=== PATIENT | male | born 1995 | race Caucasian/White ===

== ENCOUNTER 2022-07-08 22:58 | Emergency (ER) | payer MEDICAID, SELFPAY ==
[2022-07-08] VITALS (11 sets, daily range): BP systolic 113–153; BP diastolic 68–92; PULSE 87–114; RESP 17–24; TEMP 36.6; O2SAT 100
--- NOTE | 2022-07-08 23:00 | RT.EKG_ITS ---
APPROVED REPORT Exam: Resting ECG Reason for Exam: palpitations Patient Location: E HR:112 bpm ECG Measurements Heart Rate 112 AXIS WV 155 P 73 QRSd 118 QRS 78 QT 331 T 44 QTc 452 Conclusion Sinus tachycardia...rate> 99 Right bundle branch block...QRSd>120, terminal axis(90,270) I have reviewed and interpreted ECG and agree with software generated interpretation.
[2022-07-08] MEDS: Normal Saline 1,000 ML 1000 ML IV (23:24)
[2022-07-08 23:35] LABS: Abs Immature Grans 0.01 10^3/uL (0.0-0.06); Absolute Basophil Count 0.06 10^3/uL (0.0-0.2); Absolute Eosinophil Count 0.15 10^3/uL (0.0-0.7); Absolute Lymphocyte Count 2.41 10^3/uL (1.2-3.4); Absolute Monocyte Count 0.41 10^3/uL (0.1-0.8); Eosinophils % 2.6; HCT 43.5 % (40.0-50.0); HGB 15.3 g/dL (13.5-17.5); Immature Grans % 0.2; MCH 31.5 pg (27.0-33.0); MCHC 35.2 % (32.0-36.0); MCV 90 fL (80-95); Monocytes % 7.1; Neutrophils % 47.1; Platelet Count 251 10^3/uL (130-400); RBC 4.86 10^6/uL (4.36-5.78); RDW 11.9 % (11.8-14.1); RDW-SD 38.7 fL; WBC 5.74 10^3/uL (4.4-10.8)
[2022-07-08 23:52] LABS: PHOSPHORUS 2.6 mg/dL (2.6-4.7)
[2022-07-09] VITALS: BP 115/66; PULSE 91; PULSE 95; RESP 17; O2SAT 100
[2022-07-09] LABS: ALT 38 U/L (16-63); AST 18 U/L (15-37); Albumin 4.5 g/dL (3.4-5.0); Alkaline Phosphatase 72 U/L (46-116); Anion Gap 9.2 mmol/L (3-11); BUN 17 mg/dL (7-18); Bilirubin, Total 0.5 mg/dL (0.2-1.0); CO2 28.8 mmol/L (21.0-32.0); Calcium 9.2 mg/dL (8.5-10.1); Chloride 103 mmol/L (98-107); Estimated GFR 105.14 (mL/min/1.73m2); Glucose 127 mg/dL (74-106); Magnesium 1.8 mg/dL (1.8-2.4); NT-proBNP 20 pg/mL (<300); Potassium 3.6 mmol/L (3.5-5.1); Sodium 141 mmol/L (136-145); TSH (W/Ref FT4) 1.65 uIU/mL (0.36-3.74); Total Protein 7.9 g/dL (6.4-8.2); Troponin I < 50 ng/L (<or=60)
[2022-07-09 00:01] VITALS: PULSE 97; RESP 15; O2SAT 100
--- NOTE | 2022-07-09 00:03 | ED.GENADUL_ITS ---
Discharge Plan Disposition Patient Disposition: Home Condition: Good Discharge Details Clinical Impression: Palpitations Primary Care Provider: Néstor Baca ED Provider: Cyrus Chilel Home Meds and New Rx's Prescriptions: No Action multivitamin Tablet 1 tab PO DAILY albuterol sulfate [ProAir HFA] 90 mcg/actuation HFA aerosol inhaler 2 puff inhalation .q4-6h PRN (Reason: shortness of breath or wheezing) Qty: 8.5 0RF Discharge Instructions Instructions: Heart Palpitations (ED) Additional Instructions: At this time your work-up has returned very reassuring. Your electrolytes cardiac function and lab markers are all normal. You do appear to be having intermittent premature atrial contractions with potential premature ventricular contractions. Please contact the respiratory therapy department on Monday to set up establishment of Holter monitor. Please avoid any stimulants, get plenty of sleep and rest, and avoid any significant stressful activity. If you notice any worsening of your symptoms, or any new symptoms such as vomiting, diarrhea, fever, chills, shortness of breath, chest pain, numbness, weakness, or fainting , please return immediately to the emergency department for reevaluation. Please follow up with your primary care provider as soon as possible for reassessment and reevaluation. As always, it was a pleasure participating in your medical care today. Referrals: Agueda Ag MD [ [facility] STAFF PHYSICIAN] - Discharge Orders Other Ambulatory Orders: Holter Monitor (Routine) Timeframe: 1 Week Facility: [facility] - Location: Respiratory Therapy Ordered By: Cyrus Chilel Medical Decision Making This is a 26-year-old male with a past medical history of a bicuspid aortic valve, ischemia of the redness of his right eye, asthma, who presents today for palpitations. Patient states that he has been intermittently feeling random short-lived palpitations for the last few months to years, however tonight he felt quite a few of them which was atypical. They occurred about 30 minutes prior to arrival. They seem to be present every few minutes or so. It is felt as just a single atypical beat. He denies any significant chest pain but does admit to an odd chest sensation. He denies numbness tingling or weakness. He denies syncope or lightheadedness. He denies any family history of sudden cardiac , significant dysrhythmias or other abnormalities. He did drink Gatorade tonight, and he does take a regular magnesium supplement secondary to the ischemia of his retina, however he denies any cocaine use, caffeine use, or other stimulants. Patient did take an Ativan and some vaped marijuana prior to arrival after the palpitations began and this did not seem to change his symptoms. No other complaints at this time. No other modifying factors. Physical exam demonstrates well-appearing male, vital signs stable, no abnormality on physical exam. EKG is benign in appearance aside for evidence of a right bundle branch block which she states is not new. On the monitor the patient does appear to have intermittent premature atrial contractions, but no evidence of A-fib or flutter. There does appear to be atrial enlargement noted on EKG, differential includes PACs secondary to the patient's chronic heart conditions gradually worsened and then precipitated by enlargement of his atria,, but also include electrolyte abnormality, PE, or stimulant cause. We will evaluate for concerning etiologies, monitor closely and reassess. 1 AM Laboratory work-up has returned, D-dimer normal, proBNP normal suggesting no cardiac strain. Thyroid function normal, troponin normal, electrolytes normal, CBC normal. Patient remained stable. Symptoms have improved. We have noticed that his PACs appear to be a little bit more present when he is speaking, but not when he is resting. Patient otherwise looks clinically well, vital signs stable. Discussed prolonged observation versus discharge and patient feels very comfortable with discharge at home at this time. No evidence of significant cardiac dysrhythmia, however with the patient's PACs that he has had I do feel that outpatient Holter monitor is reasonable to evaluate for any other significant different dysrhythmia. We will schedule for an outpatient Holter and placed the order with respiratory therapy. Recommended continued hydration at home, close monitoring of his food diary, and return if he has any worsening symptoms. Symptoms at this time appear inconsistent with significant life- threatening dysrhythmia. Discussed red flags for which to return. I have extensively reviewed the treatment plan and discharge instructions with the patient. I have addressed all patient concerns at this time. The patient was made aware of what symptoms to monitor for that would warrant a return to the emergency department. Discussed the plan with the patient, they demonstrate verbal understanding and agreement with our assessment and plan at this time. The documentation in this chart was dictated using [employer] dictation software. Please excuse any dictation errors. HPI General Date/Time Provider Initiated Documentation: 07/08/22 23:03 . HPI Narrative: This is a 26-year-old male with a past medical history of a bicuspid aortic valve, ischemia of the redness of his right eye, asthma, who presents today for palpitations. Patient states that he has been intermittently feeling random short-lived palpitations for the last few months to years, however tonight he felt quite a few of them which was atypical. They occurred about 30 minutes prior to arrival. They seem to be present every few minutes or so. It is felt as just a single atypical beat. He denies any significant chest pain but does admit to an odd chest sensation. He denies numbness tingling or weakness. He denies syncope or lightheadedness. He denies any family history of sudden cardiac , significant dysrhythmias or other abnormalities. He did drink Gatorade tonight, and he does take a regular magnesium supplement secondary to the ischemia of his retina, however he denies any cocaine use, caffeine use, or other stimulants. Patient did take an Ativan and some vaped marijuana prior to arrival after the palpitations began and this did not seem to change his symptoms. No other complaints at this time. No other modifying factors. Related Data Home Medications Medication Instructions Recorded Confirmed multivitamin 1 tab PO DAILY 06/16/21 07/08/22 albuterol sulfate 90 mcg/actuation 2 puff inhalation .q4-6h PRN 07/23/21 07/08/22 aerosol inhaler (ProAir HFA) shortness of breath or wheezing #8.5 grams Previous Rx's Medication Instructions Recorded albuterol sulfate 90 mcg/actuation 2 puff inhalation .q4-6h PRN 07/23/21 aerosol inhaler (ProAir HFA) shortness of breath or wheezing #8.5 grams Allergies Allergy/AdvReac Type Severity Reaction Status Date / Time seasonal allergies Allergy Uncoded 07/08/22 23:20 General Stated Complaint: Palpitatns JIMMY: 2 Review of Systems All systems reviewed & are unremarkable except as noted in HPI and below PFSH All Active Problems (Updated 07/09/22 @ 00:29 by Cyrus Chilel DO) Palpitations (Acute) Tachycardia (Acute) Ischemia of retina of right eye (Acute) Bicuspid aortic valve (Chronic) Anxiety (Chronic) Asthma (Chronic) Medical History BRBPR (bright red blood per rectum) Depression Urinary frequency Surgical History Meatal stenosis surgery 11/2000 Family History Paternal Grandmother Colon cancer Diabetes Anxiety Father Depression Heart disease Hypertension Anxiety Mother Hypertension Anxiety Social History Smoking/Tobacco Use Status: Never Second Hand Exposure: No Smoking risk assessment performed?: Yes Alcohol Intake: never Drug use: Never Substance use type: does not use and marijuana Adopted: No Caregiver/Support person: No Foster care: No Household members: significant other Housing: house Number of Children: 0 Communication Needs: Corrective Lenses Education Level: high school Do you need help understanding health information?: Never current occupation: [employer] Pets and animals: No Sexually active: Yes Do you think of yourself as: straight/heterosexual Current gender identity: male What is your relationship status?: living with partner How often do you talk on the phone with friends or family?: once per week Do you belong to any clubs or organized social groups?: no Panel score (0-1 are the most socially isolated patients): 1 What type of physical activity do you participate in: walking and weight lifting Duration: < 15 minutes/day Roselia/Catholic: Denominational Special roselia needs: No Seatbelt use: always Helmet use: Yes Helmet use: always Drive intox or ride w/intox seasonal driver: No Do you feel safe in your relationship?: Yes Victim of physical abuse: No Exam Narrative Exam Narrative: 1.Const: Well-nourished, Well-developed, appearing stated age 2.Eyes: PERRL, no conjunctival injection, and symmetrical lids. 3.ENT: Atraumatic external nose and ears. Moist MM. Neck: Symmetric, trachea midline, No thyromegaly. 4.CVS: +S1/S2, No murmurs or gallops. Peripheral pulses 2+ and equal in all extremities. Brisk capillary refill in all extremities. 5.RESP: Unlabored respiratory effort. Clear to auscultation bilaterally. No wheezes rales or rhonchi 6.GI: Soft, Nontender/Nondistended, No hepatosplenomegaly. No guarding or rebound. 7.MSK: Normocephalic/Atraumatic, Extremities w/o deformity or ttp No cyanosis or clubbing, Normal movement of all extremities 8.Skin: Warm, Dry. No rashes or lesions. 9.Neuro: rooter operator II-XII grossly intact. Sensation grossly intact, no focal neurologic deficits. 10.Psych: (AAO) x3. Appropriate mood and affect Course Vital Signs Vital signs: Vital Signs Temperature 36.6 C 07/08/22 23:01 Pulse 111 H 07/08/22 23:01 Respiratory Rate 20 07/08/22 23:01 Blood Pressure 153/84 H 07/08/22 23:01 Pulse Oximetry 100 07/08/22 23:01 Temperature 36.6 C 07/08/22 23:01 Pulse 104 H 07/08/22 23:03 Pulse 103 H 07/08/22 23:20 Respiratory Rate 23 07/08/22 23:20 Respiratory Effort Normal 07/08/22 23:01 Blood Pressure 153/84 H 07/08/22 23:03 Blood Pressure Mean 101 07/08/22 23:03 Blood Pressure Position Sitting 07/08/22 23:01 Pulse Oximetry 100 07/08/22 23:10 Pain Level 0 07/08/22 23:01 Lab/Test Results Lab/Test Results: Laboratory Tests Range/Units 07/08/22 23:10 WBC (4.4-10.8) 10^3/uL 5.74 RBC (4.36-5.78) 10^6/uL 4.86 Hgb (13.5-17.5) g/dL 15.3 Hct (40.0-50.0) % 43.5 MCV (80-95) fL 90 MCH (27.0-33.0) pg 31.5 MCHC (32.0-36.0) % 35.2 RDW (11.8-14.1) % 11.9 Plt Count (130-400) 10^3/uL 251 MPV (8.0-11.0) fL 10.0 Immature Gran % 0.2 Neutrophils % 47.1 Lymphocytes % 42.0 Monocytes % 7.1 Eosinophils % 2.6 Basophils % 1.0 Nucleated RBC % (0.0-0.3) % 0.0 Absolute Neutrophils (1.2-6.7) 10^3/uL 2.70 Absolute Lymphocytes (1.2-3.4) 10^3/uL 2.41 Absolute Monocytes (0.1-0.8) 10^3/uL 0.41 Absolute Eosinophils (0.0-0.7) 10^3/uL 0.15 Absolute Basophils (0.0-0.2) 10^3/uL 0.06
[2022-07-09 00:09] LABS: D-Dimer < 75 ng/mlFEU (<500)
[2022-07-09 00:10] VITALS: PULSE 100; RESP 19; O2SAT 100
[2022-07-09 00:15] VITALS: BP 118/76; PULSE 96; PULSE 97; RESP 25; O2SAT 100
[2022-07-09 00:20] VITALS: PULSE 103; RESP 14; O2SAT 100
--- NOTE | 2022-07-09 00:29 | NUR.NOTE ---
Requisition for Holter Monitor faxed to Respiratory Therapy. Nursing Note:
[2022-07-09 00:39] VITALS: BP 123/68; PULSE 103; RESP 14; O2SAT 100
== END 2022-07-09 00:42 | disposition home or self-care (01) ==
LOC: ER 07-09 00:47
PROVIDERS: Emergency Provider Student in an Organized Health Care Education/Training Program; PCP Family Medicine
DX: R00.2 Palpitations (principal); J45.909 Unspecified asthma, uncomplicated; I45.10 Unspecified right bundle-branch block
CPT/HCPCS: 36415; 80053; 93005; 96360; 99284; 83735; 83880; 84100; 84443; 84484; 85025; 85379; 93010

== ENCOUNTER 2022-07-15 13:36 | Outpatient (RCR) | payer MEDICAID, SELFPAY ==
--- NOTE | 2022-07-15 13:30 | HOLTER_ITS ---
APPROVED REPORT Conclusion This is a 48-hour Holter monitor ordered for palpitations Rhythm throughout was sinus with an average heart rate of 72. Minimum was 53, maximum 146 3 isolated PVCs were seen 2 isolated atrial premature beats occurred There was no atrial fibrillation no SVT no high-grade AV block no pauses greater than 3 seconds Numerous patient symptoms were reported none of which had any correlation with dysrhythmia
== END 2022-07-29 23:59 | disposition home or self-care (01) ==
LOC: CARDOPNVT 13:36
PROVIDERS: PCP Family Medicine; Visit Provider Student in an Organized Health Care Education/Training Program
DX: R00.2 Palpitations (principal); I49.1 Atrial premature depolarization; I49.3 Ventricular premature depolarization
CPT/HCPCS: 93225; 93226

== ENCOUNTER 2022-10-04 01:50 | Outpatient (CLI) | payer MEDICAID, SELFPAY ==
--- NOTE | 2022-10-04 | DI.RAD_ITS ---
Exam(s) XR HAND LT COMPLETE EXAM: XR HAND LT COMPLETE CLINICAL HISTORY: LT FINGER PAIN, M79.645. TECHNIQUE: 2D digital imaging was performed of the left hand. Three views were obtained. AP, later al and oblique views were obtained. COMPARISON: No exams were available for comparison FINDINGS: BONES: No acute fracture is present. No bony destructive lesion is seen. JOINTS: No dislocation present. The joint spaces are well maintained. SOFT TISSUE: Normal. IMPRESSION: Unremarkable radiographs of the left hand. DATA REPOSITORY: RADIATION DOSE DELIVERED:
== END 2022-10-04 02:10 ==
LOC: DI 01:50
PROVIDERS: PCP Family Medicine; Visit Provider Family Medicine
DX: M79.645 Pain in left finger(s) (principal)
CPT/HCPCS: 73130

== ENCOUNTER 2022-11-02 08:09 | Outpatient (CLI) | payer MEDICAID, SELFPAY ==
--- NOTE | 2022-11-02 08:00 | RT.EKG_ITS ---
APPROVED REPORT Exam: Resting ECG Reason for Exam: tachycardia Patient Location: O HR:91 bpm ECG Measurements Heart Rate 91 AXIS NV 157 P 70 QRSd 108 QRS 82 QT 353 T 59 QTc 435 Conclusion Sinus rhythm...normal P axis, V-rate 50- 99 Probable left atrial enlargement...P >50mS, <-0.10mV V1
== END 2022-11-02 08:10 | disposition home or self-care (01) ==
LOC: DI.CARD 08:10
PROVIDERS: PCP Family Medicine; Visit Provider Internal Medicine Cardiovascular Disease
DX: R00.0 Tachycardia, unspecified (principal)
CPT/HCPCS: 93010

== ENCOUNTER 2023-12-06 08:22 | Outpatient (CLI) | payer MEDICAID, SELFPAY | END 2023-12-06 08:23 | disposition home or self-care (01) | LOC: DI.CARD 08:23 | PROVIDERS: PCP Family Medicine; Visit Provider Internal Medicine Cardiovascular Disease | CPT/HCPCS: 93010 ==